=== PATIENT | female | born 1955 | race African-American/Black ===

== ENCOUNTER 2017-07-03 13:36 | Inpatient (IN) | payer MEDICAID, SELFPAY ==
[2017-07-03 14:21] LABS: #Lymphocytes 0.8 thou/uL (1.20-3.40); #Monocytes 1.2 thou/uL (0.11-0.59); #Neutrophils 12.4 thou/uL (1.40-6.50); %Basophils 0.2 % (0.0-1.0); %Eosinophils 0.1 % (0.0-10.0); %Lymphocytes 5.5 % (21.0-51.0); %Monocytes 8.2 % (0.0-10.0); Hematocrit 35.5 % (36.0-47.0); Mean Platelet Volume 8.8 fL (7.4-10.4); Red Blood Cell (RBC) Count 4.35 mill/uL (4.20-5.40); White Blood Cell (WBC) Count 14.4 thou/uL (4.8-10.8)
[2017-07-03 14:29] LABS: PTT 35.8 SEC (22.9-36.1); Prothrombin Time 15.2 SEC (12.0-14.7)
[2017-07-03 14:49] LABS: Troponin I 0.026 ng/mL (< 0.028)
[2017-07-03 14:51] LABS: ALT (SGPT) 21 U/L (8-55); AST (SGOT) 29 U/L (5-34); Alkaline Phosphatase 111 U/L (40-150); Anion Gap 15 mmol/L (10-20); BUN (Urea Nitrogen) 30 mg/dL (9.8-20.1); Bilirubin, Total 0.6 mg/dL (0.2-1.2); CK (CPK) 125 U/L (29-168); Calc. Creatinine Clearance 0 mL/min (70-130); Calcium 9.4 mg/dL (7.8-10.44); Carbon Dioxide 25 mmol/L (22-29); Chloride 107 mmol/L (98-107); Estimated GFR-MDRD 23; Globulin 4.2 g/dL (2.4-3.5); Protein, Total 7.9 g/dL (6.0-8.3)
[2017-07-03] MEDS ORDERED: Acetaminophen 325 MG TAB ONE (15:54)
--- NOTE | 2017-07-03 16:14 | RAD ---
PORTABLE AP CHEST X-RAY 07/03/17 HISTORY: High blood pressure and dizziness and nausea since Thursday. COMPARISON: 01/21/17. FINDINGS: The cardiac silhouette and pulmonary vasculature are within normal limits. Lungs are clear. There has been no interval change from the prior exam. IMPRESSION: No acute cardiopulmonary process. POS: [facility]
[2017-07-03 16:26] LABS: Bilirubin Negative (Negative); Blood, Urine Moderate (Negative); Glucose, Urine (Dipstick) Negative (Negative); Ketone, Urine Negative (Negative); Nitrite Negative (Negative); Protein, Urine (Dipstick) 100 mg/dL (Neg-Trace); Urobilinogen 0.2 mg/dL (0.2-1.0)
[2017-07-03 16:28] LABS: Bacteria/HPF None Seen HPF (None Seen); Hyaline Casts/LPF 0-3 HYALINE CAST LPF (0-3 Hyaline)
[2017-07-03] MEDS ORDERED: cefTRIAXone\\ROCEPHIN 2 GM in Sodium Chloride 0.9% 100 ML IVPB SCH (17:30)
[2017-07-03] MEDS ORDERED: Ondansetron HCl/PF 4 MG/2 ML Vial ONE (17:55)
[2017-07-03 18:50] LABS: Lactic Acid - Sepsis 0.8 mmol/L (0.5-2.2)
[2017-07-03] MEDS ORDERED: hydrALAZINE 20 MG/ML VIAL SLOW IVP PRN (18:55)
[2017-07-03 20:25] LABS: Lactic Acid - Sepsis 0.9 mmol/L (0.5-2.2)
[2017-07-03] MEDS ORDERED: Ondansetron HCl/PF 4 MG/2 ML Vial IVP PRN (20:45)
[2017-07-03] MEDS ORDERED: Ondansetron ODT 4 MG TAB SL PRN (20:45)
[2017-07-03] MEDS ORDERED: Acetaminophen 325 MG TAB PO PRN (20:45)
[2017-07-03] MEDS ORDERED: HYDROcodone/Acetaminophen 5/325 mg Tablet PO PRN (20:46)
[2017-07-03] MEDS ORDERED: HYDROcodone/Acetaminophen 10/325 mg Tablet PO PRN (20:46)
[2017-07-03] MEDS ORDERED: Enoxaparin Sodium 30 MG/0.3 ML SYRINGE SC SCH (20:46)
[2017-07-03] MEDS ORDERED: Cefepime 1 GM in Sodium Chloride 0.9% 100 ML IVPB SCH (21:00)
[2017-07-03] MEDS: Sodium Chloride 0.9% 1,000 ML IV SCH ×2 (22:08→22:09)
[2017-07-03] MEDS: Cefepime 1 GM, Admixture Fee 1 EACH in Sterile Water 10 ML SLOW IVP SCH (22:10)
[2017-07-03] MEDS: metroNIDAZOLE 500 MG in Premix Bag 1 BAG IVPB SCH (22:15)
[2017-07-03 22:55] VITALS: BMI 30.3
--- NOTE | 2017-07-03 23:32 | HP ---
PRIMARY CARE PHYSICIAN: Dr. Shelley CHIEF COMPLAINT: Blood pressure, dizziness, arm pain. HISTORY OF PRESENT ILLNESS: Ms. Rene is a 62-year-old female with history of hypert ension, GERD, renal cell carcinoma who presents to the emergency department today with several compla ints. Per the note, she was complaining of myalgias for the last 2 to 3 days, but she says she really not h ad any muscle aches, she has felt bad for 2 to 3 days. She mentions pain in the left arm, where her whole arm ached and went into the chest starting today. Chest pain is sharp in nature, in the upper left region of her chest. Worse with palpation, deep inspiration and coughing. She has had a cough productive of some whitish to spivey color sputum and no blood. It is only minimally productive. She says her blood pressure has gone up and down and when asked to elucidate, she said it had gone from 1 45/70 to 150/80 to 160/89. She has not had any blood pressures over 160 and she has not had any bloo d pressures less than 140. She says she has some dizziness and just did not feel right, felt nauseat ed, but did not have any throwing up. She has some nausea here in the ER, was given some Zofran and it resolved. She said her urine has been dark and strongly odor, but did not smell bad. She denies any dysuria or hematuria. She has been drinking 3 of 4 bottles of water a day, has been urinating okay. She denie s having any fever or rash, but said the last night, she has had some chills with shaking rigors. Sh e did not actually take her temperature. She says her heart rate is normally in the 50s, but in the last couple days, it has been in the 70s a nd 80s and she has felt bad with that. She denies any other current complaints and since given some medicine in the ER, feels a little better. In the emergency department she was given Rocephin, labs and urine were obtained. She was given Tyle nol, and we were called for admission. PAST MEDICAL HISTORY: 1. Hypertension. 2. Gastroesophageal reflux disease. 3. Renal cell carcinoma. 4. Heart murmur. PAST SURGICAL HISTORY: 1. Right nephrectomy. 2. Hysterectomy and bilateral salpingo-oophorectomy. 3. Right breast lumpectomy. HOME MEDICATIONS: 1. Amlodipine, recently increased about 2 weeks ago to 5 mg daily. 2. Protonix 40 mg p.o. q.a.m. 3. Iron tablets. 4. Vitamin D. ALLERGIES: NKDA. FAMILY HISTORY: Significant for coronary artery disease. Her mom at age 66 of heart attack. N o history of premature coronary disease, no diabetes. There is no history of immune dysfunction or h ematologic disorders. SOCIAL HISTORY: Negative for alcohol or IV drug use. She does use tobacco, snuff. She goes to [facility] t 1 can a week. REVIEW OF SYSTEMS: Ten-point review of system was performed and negative for all other systems excep t dictated as per HPI. PHYSICAL EXAMINATION: VITAL SIGNS: Temperature initially on arrival 101.2, now down to 98.4; pulse 89 and is maximum, now down the mid 70s. Blood pressure 110/72, respiratory rate 20, sat 98% on room air. GENERAL: She is awake, she is alert. She is oriented x3. Well-developed, well-nourished -Am erican female, appears to be in zero distress. HEENT: Normocephalic, atraumatic. Pupils equal, round, react to light bilaterally, mucous membranes are moist and no visible lesions and no thrush. She has some posterior nasal drainage that is clear with some posterior oropharyngeal cobblestoning. LUNGS: Clear to auscultation bilaterally. She has no wheezes, no rales, no rhonchi, no prolonged ex piratory phase. She has got symmetric chest excursion with good air movement. CARDIOVASCULAR: Normal S1 and S2. No S3 or S4. She does have a 3/6 holosystolic murmur, best heard at the apex. ABDOMEN: Soft, is nontender, nondistended. She has got no hepatosplenomegaly. She has normoactive bowel sounds present in all 4 quadrants. There is no rebound, rigidity or guarding. EXTREMITIES: There is no cyanosis, no clubbing, no edema with 2+ peripheral pulses. SKIN: Warm, moist and well perfused. She has no rashes, no lesions. MUSCULOSKELETAL: Normal to inspection. Large joints have good range of motion actively and passivel y. She has no inflammation and no palpable effusion. NEUROLOGIC: Cranial II-XII grossly intact without any focal neurologic deficits. LABORATORY STUDIES: CMP is completely within normal limits except for creatinine at 2.54, noted as 1 .29 back in 01/2017. White blood cell count 14.4 with 86% granulocytes, hemoglobin 11.9, hematocrit 35.5, and platelet count is 164,000. Urinalysis showed moderate blood, 11-20 red blood cells, 11-20 white blood cells, 4-6 grams of epithelium cells, no bacteria, negative nitrite and only trace leukoc yte esterase. Flu test is currently pending. CK-MB is normal at 0.4, troponin I is normal at 0.026 and INR was 1.2. Chest x-ray showed no acute cardiopulmonary disease. Lactic acid been requested and is pending. ASSESSMENT AND PLAN: 1. Severe sepsis. The patient has a fever, elevated white count, suspected infection, and evidence of end organ disease with creatinine double what her baseline value is. Sepsis protocol has been ini tiated. She got 30 mL/kg IV fluids, blood cultures have been ordered. I requested lactic acid to be drawn stat in the ER. Flu study still currently pending. We will place patient on inpatient status . We will start cefepime and levofloxacin empirically. She has had upper respiratory symptoms and n ot quite abnormal urine. She has no abdominal complaints whatsoever. 2. History of acute kidney injury: Creatinine 2.54, was 1.29 back in January. We will start on IV flu ids at 125 mL per hour. We will recheck in the morning. Also, it could be dehydration, the patient says she has been drinking fluids okay and worried that she may be an acute kidney injury secondary t o her sepsis. 3. History of hypertension: We will hold her amlodipine for right now. We will have p.r.n. hydrala zine if her blood pressure does get elevated. 4. History of gastroesophageal reflux disease: We will continue Protonix for GI prophylaxis. 5. History of renal cancer, status post nephrectomy. 6. History of a murmur: Does have mitral regurge murmur present. No history of heart failure. We will hold off on getting an echocardiogram at present. Certainly, concerned for heart valve infectio n and we would go up if there is no other identifiable source. We will follow up on blood cultures.
[2017-07-04] MEDS: Sodium Chloride 0.9% 1,000 ML IV SCH ×3 (01:43→12:09)
[2017-07-04] MEDS: Acetaminophen 325 MG TAB PO PRN ×2 (02:02→11:05)
[2017-07-04] MEDS: metroNIDAZOLE 500 MG in Premix Bag 1 BAG IVPB SCH ×3 (04:37→20:43)
[2017-07-04 05:47] LABS: #Lymphocytes 0.7 thou/uL (1.20-3.40); #Neutrophils 8.1 thou/uL (1.40-6.50); %Basophils 0.1 % (0.0-1.0); %Eosinophils 0.3 % (0.0-10.0); %Lymphocytes 6.8 % (21.0-51.0); %Monocytes 10.4 % (0.0-10.0); Hematocrit 28.6 % (36.0-47.0); Mean Platelet Volume 9.1 fL (7.4-10.4); White Blood Cell (WBC) Count 9.9 thou/uL (4.8-10.8)
[2017-07-04 05:59] LABS: Anion Gap 11 mmol/L (10-20); BUN (Urea Nitrogen) 30 mg/dL (9.8-20.1); Calc. Creatinine Clearance 31 mL/min (70-130); Calcium 8.1 mg/dL (7.8-10.44); Carbon Dioxide 22 mmol/L (22-29); Chloride 111 mmol/L (98-107); Estimated GFR-MDRD 24
[2017-07-04] MEDS: Cefepime 1 GM, Admixture Fee 1 EACH in Sterile Water 10 ML SLOW IVP SCH ×2 (09:03→20:43)
--- NOTE | 2017-07-04 12:05 | PDOC.PN ---
- Subjective Encounter Start Date: 07/04/17 Encounter Start Time: 10:20 states she is feeling better but feels like she is currently having fever right now. Temp was 100 after reporting symptoms of fever. Patient was febrile at midnight - Objective Resuscitation Status: Resuscitation Status FULL:Full Resuscitation Vital Signs & Weight: Vital Signs (12 hours) Temp Pulse Resp BP Pulse Ox 07/04/17 11:03 100 F H 07/04/17 08:00 97.6 F 62 18 93 L 07/04/17 07:54 97.6 F 62 18 117/63 93 L 07/04/17 04:00 99.1 F 62 18 121/58 L 100 Weight Weight 176 lb 11.2 oz I&O: 07/03/17 07/04/17 07/05/17 06:59 06:59 06:59 Intake Total 1164 Output Total 900 Balance 264 Result Diagrams: 07/04/17 05:16 07/04/17 05:16 Phys Exam - Physical Examination HEENT: PERRLA, moist MMs Neck: no nodes, no JVD Respiratory: no wheezing, no rales, clear to auscultation bilateral Cardiovascular: RRR, no significant murmur, no rub Gastrointestinal: soft, non-tender Musculoskeletal: no edema, pulses present Neurological: non-focal, moves all 4 limbs Psychiatric: normal affect, A&O x 3 Skin: cap refill <2 seconds Dx/Plan (1) Severe sepsis Code(s): A41.9 - SEPSIS, UNSPECIFIED ORGANISM; R65.20 - SEVERE SEPSIS WITHOUT SEPTIC SHOCK Status: Acute (2) CKD (chronic kidney disease), stage III Status: Chronic (3) HTN (hypertension) Code(s): I10 - ESSENTIAL (PRIMARY) HYPERTENSION Status: Chronic - Plan cont current plan of care, plan discussed w/ family, continue antibiotics * . unclear the source of her fever blood cultures ordered. pending results continue with IV abx.
[2017-07-04] MEDS: Ondansetron ODT 4 MG TAB PO PRN ×2 (12:27→17:54)
[2017-07-05] MEDS: Sodium Chloride 0.9% 1,000 ML IV SCH ×3 (02:19→20:43)
[2017-07-05] MEDS: metroNIDAZOLE 500 MG in Premix Bag 1 BAG IVPB SCH ×3 (05:22→20:26)
[2017-07-05 06:28] LABS: Anion Gap 13 mmol/L (10-20); BUN (Urea Nitrogen) 27 mg/dL (9.8-20.1); Calc. Creatinine Clearance 32 mL/min (70-130); Carbon Dioxide 22 mmol/L (22-29); Chloride 118 mmol/L (98-107); Estimated GFR-MDRD 25
[2017-07-05] MEDS: Acetaminophen 325 MG TAB PO PRN ×2 (08:39→18:31)
[2017-07-05] MEDS: Ondansetron ODT 4 MG TAB PO PRN (08:40)
[2017-07-05] MEDS: Cefepime 1 GM, Admixture Fee 1 EACH in Sterile Water 10 ML SLOW IVP SCH ×2 (09:51→20:25)
--- NOTE | 2017-07-05 11:32 | PDOC.PN ---
- Subjective Encounter Start Date: 07/05/17 Encounter Start Time: 08:00 Pt seen for followup re; sepsis. Denies chets pain. Feels weak. Nausea+. No vomiting or diarrhea. - Objective Resuscitation Status: Resuscitation Status FULL:Full Resuscitation Vital Signs & Weight: Vital Signs (12 hours) Temp Pulse Resp BP Pulse Ox 07/05/17 07:45 99.3 F 75 20 135/63 100 07/05/17 04:00 98.8 F 74 18 153/67 H 94 L 07/05/17 00:00 99.2 F 74 16 126/65 92 L Weight Weight 176 lb 11.2 oz I&O: 07/04/17 07/05/17 07/06/17 06:59 06:59 06:59 Intake Total 1164 6083 Output Total 900 3000 Balance 264 3083 Result Diagrams: 07/04/17 05:16 07/05/17 05:35 Phys Exam - Physical Examination Constitutional: NAD HEENT: PERRLA, moist MMs, sclera anicteric, oral pharynx no lesions Neck: no nodes, no JVD, supple, full ROM Respiratory: no wheezing, no rales, no rhonchi, clear to auscultation bilateral Cardiovascular: RRR, no rub Apical systolic murmur Gastrointestinal: soft, non-tender, no distention, positive bowel sounds Musculoskeletal: pulses present Neurological: moves all 4 limbs Lymphatic: no nodes Psychiatric: normal affect, A&O x 3 Skin: no rash, normal turgor, cap refill <2 seconds Dx/Plan (1) Sepsis Code(s): A41.9 - SEPSIS, UNSPECIFIED ORGANISM Status: Acute (2) Acute on chronic renal failure Code(s): N17.9 - ACUTE KIDNEY FAILURE, UNSPECIFIED; N18.9 - CHRONIC KIDNEY DISEASE, UNSPECIFIED Status: Acute (3) GERD (gastroesophageal reflux disease) Code(s): K21.9 - GASTRO-ESOPHAGEAL REFLUX DISEASE WITHOUT ESOPHAGITIS Status: Chronic (4) HTN (hypertension) Code(s): I10 - ESSENTIAL (PRIMARY) HYPERTENSION Status: Chronic - Plan continue antibiotics, PT/OT, out of bed/ambulate, DVT proph w/heparin * . Continue IV antibiotics. 2D echo to r/o infective endocarditis. Monitor hellen;l signs, titrate antihypertensives as needed. Resume home medications. Avoid nephrotoxic meds, monitor creatinine and lytes. Review of Systems - Review of Systems Constitutional: Weakness. negative: Fever, Chills, Sweats, Malaise Respiratory: negative: Cough, Dry, Shortness of Breath, Hemoptysis, SOB with Excertion, Pleuritic Pain, Sputum, Wheezing Cardiovascular: negative: Chest Pain, Palpitations, Orthopnea, Paroxysmal Noc. Dyspnea, Edema, Light Headedness Gastrointestinal: Nausea. negative: Vomiting, Abdominal Pain, Diarrhea, Constipation, Melena, Hematochezia Genitourinary: negative: Dysuria, Frequency, Incontinence, Hematuria, Retention Neurological: Weakness - Medications/Allergies Allergies/Adverse Reactions: Allergies Allergy/AdvReac Type Severity Reaction Status Date / Time No Known Allergies Allergy Verified 01/31/16 19:53 Medications: Current Medications Acetaminophen (Tylenol) 650 mg PO Q4H PRN PRN Reason: Headache/Fever or Pain Last Admin: 07/05/17 08:39 Dose: 650 mg Hydrocodone Bitart/Acetaminophen ([place] 10/325) 1 tab PO Q4H PRN PRN Reason: Severe Pain (7-10) Last Admin: 07/03/17 22:09 Dose: 1 tab Hydrocodone Bitart/Acetaminophen ([place] 5/325) 1 tab PO Q4H PRN PRN Reason: Moderate Pain (4-6) Hydralazine HCl (Apresoline) 10 mg SLOW IVP Q4H PRN PRN Reason: SBP Greater Than 170 Metronidazole 500 mg/ Device 100 mls @ 100 mls/hr IVPB Q8HR [facility] Last Admin: 07/05/17 05:22 Dose: 100 mls Sodium Chloride (Normal Saline 0.9%) 1,000 mls @ 125 mls/hr IV .Q8H [facility] Last Admin: 07/05/17 02:19 Dose: 1,000 mls Cefepime HCl 1 gm/Miscellaneous Medication 1 each/ Sterile Water 10 mls @ 120 mls/hr SLOW IVP Q12HR [facility] Last Admin: 07/05/17 09:51 Dose: 10 mls Ondansetron HCl (Zofran Odt) 4 mg PO Q6H PRN PRN Reason: Nausea/Vomiting Last Admin: 07/05/17 08:40 Dose: 4 mg Pantoprazole Sodium (Protonix) 40 mg PO DAILY [facility] Last Admin: 07/05/17 08:39 Dose: 40 mg
[2017-07-05] MEDS: Heparin 5,000 UNITS/ML VIAL SC SCH ×2 (15:57→20:26)
[2017-07-06] MEDS: Acetaminophen 325 MG TAB PO PRN (04:06)
[2017-07-06] MEDS: Ondansetron ODT 4 MG TAB PO PRN (04:07)
[2017-07-06] MEDS: metroNIDAZOLE 500 MG in Premix Bag 1 BAG IVPB SCH ×3 (05:10→22:09)
[2017-07-06] MEDS: Sodium Chloride 0.9% 1,000 ML IV SCH ×3 (05:10→22:09)
[2017-07-06] MEDS ORDERED: Clopidogrel Bisulfate 75 MG TAB ONE (08:32)
[2017-07-06] MEDS ORDERED: Non-Formulary Item 1 EACH (Iron [Iron] 18 MG) PO SCH (09:00)
[2017-07-06] MEDS ORDERED: Non-Formulary Item 1 EACH (Amlodipine Besylate [Amlodipine Besylate] 2.5 MG) PO SCH (09:00)
[2017-07-06] MEDS: Amlodipine 5 MG TAB PO SCH (09:15)
[2017-07-06] MEDS: Heparin 5,000 UNITS/ML VIAL SC SCH ×3 (09:15→20:29)
[2017-07-06] MEDS: Ferrous Sulfate 325 MG TAB PO SCH (09:15)
[2017-07-06] MEDS: Cefepime 1 GM, Admixture Fee 1 EACH in Sterile Water 10 ML SLOW IVP SCH ×2 (09:24→20:28)
--- NOTE | 2017-07-06 10:19 | PDOC.PN ---
- Subjective Encounter Start Date: 07/06/17 Encounter Start Time: 07:00 Pt seen for followup re: sepsis. Denies chest pain, fevers or chills. Reports generalized weakness. Reports malodorous urine. Reports dry mouth, discomfort in mouth. - Objective Resuscitation Status: Resuscitation Status FULL:Full Resuscitation MAR Reviewed: Yes Vital Signs & Weight: Vital Signs (12 hours) Temp Pulse Resp BP Pulse Ox 07/06/17 09:15 68 07/06/17 07:52 98.8 F 68 18 181/76 H 93 L 07/06/17 04:00 100.0 F H 79 20 158/64 H 91 L Weight Weight 176 lb 11.2 oz I&O: 07/05/17 07/06/17 07/07/17 06:59 06:59 06:59 Intake Total 6083 4670 Output Total 3000 3400 Balance 3083 1270 Result Diagrams: 07/04/17 05:16 07/05/17 05:35 EKG Reviewed by me: Yes (Tele: NSR) Phys Exam - Physical Examination Constitutional: NAD HEENT: PERRLA, moist MMs, sclera anicteric, oral pharynx no lesions, 2+ tonsils Neck: no nodes, no JVD, supple, full ROM Respiratory: no wheezing, no rales, no rhonchi, clear to auscultation bilateral Cardiovascular: RRR, no rub Gastrointestinal: soft, non-tender, no distention, positive bowel sounds Musculoskeletal: pulses present Neurological: moves all 4 limbs Lymphatic: no nodes Psychiatric: normal affect, A&O x 3 Skin: no rash, normal turgor, cap refill <2 seconds Dx/Plan (1) Sepsis Code(s): A41.9 - SEPSIS, UNSPECIFIED ORGANISM Status: Acute (2) Acute on chronic renal failure Code(s): N17.9 - ACUTE KIDNEY FAILURE, UNSPECIFIED; N18.9 - CHRONIC KIDNEY DISEASE, UNSPECIFIED Status: Acute (3) GERD (gastroesophageal reflux disease) Code(s): K21.9 - GASTRO-ESOPHAGEAL REFLUX DISEASE WITHOUT ESOPHAGITIS Status: Chronic (4) HTN (hypertension) Code(s): I10 - ESSENTIAL (PRIMARY) HYPERTENSION Status: Chronic - Plan continue antibiotics, PT/OT, out of bed/ambulate, DVT proph w/heparin * . Continue IV antibiotics as below, follow cultures. Start Cepastat lozenges. Check Chem-7. Ambulate patient. 2D echo report noted. Transfer pt to medical floor. Review of Systems - Review of Systems Constitutional: Weakness. negative: Fever, Chills, Sweats, Malaise, Other ENT: Mouth Pain Respiratory: negative: Cough, Dry, Shortness of Breath, Hemoptysis, SOB with Excertion, Pleuritic Pain, Sputum, Wheezing Cardiovascular: negative: Chest Pain, Palpitations, Orthopnea, Paroxysmal Noc. Dyspnea, Edema, Light Headedness Gastrointestinal: negative: Nausea, Vomiting, Abdominal Pain, Diarrhea, Constipation, Melena, Hematochezia Neurological: Weakness. negative: Numbness, Incoordination, Change in Speech, Confusion, Seizures - Medications/Allergies Allergies/Adverse Reactions: Allergies Allergy/AdvReac Type Severity Reaction Status Date / Time No Known Allergies Allergy Verified 01/31/16 19:53 Medications: Current Medications Acetaminophen (Tylenol) 650 mg PO Q4H PRN PRN Reason: Headache/Fever or Pain Last Admin: 07/06/17 04:06 Dose: 650 mg Hydrocodone Bitart/Acetaminophen ([place] 10/325) 1 tab PO Q4H PRN PRN Reason: Severe Pain (7-10) Last Admin: 07/03/17 22:09 Dose: 1 tab Hydrocodone Bitart/Acetaminophen ([place] 5/325) 1 tab PO Q4H PRN PRN Reason: Moderate Pain (4-6) Amlodipine Besylate (Norvasc) 2.5 mg PO DAILY [facility] Last Admin: 07/06/17 09:15 Dose: 2.5 mg Ferrous Sulfate (Feosol) 325 mg PO DAILY [facility] Last Admin: 07/06/17 09:15 Dose: 325 mg Heparin Sodium (Porcine) (Heparin) 5,000 units SC TID [facility] Last Admin: 07/06/17 09:15 Dose: 5,000 units Hydralazine HCl (Apresoline) 10 mg SLOW IVP Q4H PRN PRN Reason: SBP Greater Than 170 Metronidazole 500 mg/ Device 100 mls @ 100 mls/hr IVPB Q8HR [facility] Last Admin: 07/06/17 05:10 Dose: 100 mls Sodium Chloride (Normal Saline 0.9%) 1,000 mls @ 125 mls/hr IV .Q8H [facility] Last Admin: 07/06/17 05:10 Dose: 1,000 mls Cefepime HCl 1 gm/Miscellaneous Medication 1 each/ Sterile Water 10 mls @ 120 mls/hr SLOW IVP Q12HR [facility] Last Admin: 07/06/17 09:24 Dose: 10 mls Ondansetron HCl (Zofran Odt) 4 mg PO Q6H PRN PRN Reason: Nausea/Vomiting Last Admin: 07/06/17 04:07 Dose: 4 mg Pantoprazole Sodium (Protonix) 40 mg PO DAILY [facility] Last Admin: 07/06/17 09:16 Dose: 40 mg Pantoprazole Sodium (Protonix) 40 mg PO DAILY [facility] Last Admin: 07/06/17 09:16 Dose: Not Given Sodium Chloride (Flush - Normal Saline) 10 ml IVF Q12HR [facility] Last Admin: 07/06/17 09:17 Dose: Not Given Sodium Chloride (Flush - Normal Saline) 10 ml IVF PRN PRN PRN Reason: Saline Flush
[2017-07-06] MEDS ORDERED: Cepastat Lozenges 1 LOZ PO PRN (10:24)
[2017-07-06 10:59] LABS: Anion Gap 14 mmol/L (10-20); BUN (Urea Nitrogen) 19 mg/dL (9.8-20.1); Calc. Creatinine Clearance 38 mL/min (70-130); Calcium 9.2 mg/dL (7.8-10.44); Carbon Dioxide 20 mmol/L (22-29); Chloride 120 mmol/L (98-107); Estimated GFR-MDRD 31
[2017-07-06 11:23] LABS: #Lymphocytes 1.1 thou/uL (1.20-3.40); #Monocytes 0.9 thou/uL (0.11-0.59); #Neutrophils 10.2 thou/uL (1.40-6.50); %Basophils 0.1 % (0.0-1.0); %Eosinophils 0.3 % (0.0-10.0); %Lymphocytes 9.1 % (21.0-51.0); %Monocytes 7.2 % (0.0-10.0); Hematocrit 33.9 % (36.0-47.0); Mean Platelet Volume 9.3 fL (7.4-10.4); Polychromasia SLIGHT = 2-3 cells (100X) (0-2/hpf); Red Blood Cell (RBC) Count 4.13 mill/uL (4.20-5.40); White Blood Cell (WBC) Count 12.2 thou/uL (4.8-10.8)
[2017-07-07] MEDS: Sodium Chloride 0.9% 1,000 ML IV SCH (02:03)
[2017-07-07] MEDS: metroNIDAZOLE 500 MG in Premix Bag 1 BAG IVPB SCH (05:07)
[2017-07-07 05:45] LABS: #Monocytes 0.7 thou/uL (0.11-0.59); #Neutrophils 7.7 thou/uL (1.40-6.50); %Basophils 0.3 % (0.0-1.0); %Eosinophils 0.3 % (0.0-10.0); %Lymphocytes 10.5 % (21.0-51.0); %Monocytes 7.7 % (0.0-10.0); Hematocrit 28.1 % (36.0-47.0); Mean Platelet Volume 9.4 fL (7.4-10.4); Red Blood Cell (RBC) Count 3.39 mill/uL (4.20-5.40); White Blood Cell (WBC) Count 9.5 thou/uL (4.8-10.8)
[2017-07-07 05:57] LABS: Anion Gap 13 mmol/L (10-20); BUN (Urea Nitrogen) 18 mg/dL (9.8-20.1); Calc. Creatinine Clearance 45 mL/min (70-130); Calcium 8.5 mg/dL (7.8-10.44); Carbon Dioxide 20 mmol/L (22-29); Chloride 123 mmol/L (98-107); Estimated GFR-MDRD 37
[2017-07-07] MEDS: Ferrous Sulfate 325 MG TAB PO SCH (09:13)
[2017-07-07] MEDS: Amlodipine 5 MG TAB PO SCH (09:14)
[2017-07-07] MEDS: Heparin 5,000 UNITS/ML VIAL SC SCH ×3 (09:16→20:19)
[2017-07-07] MEDS: Cefepime 1 GM, Admixture Fee 1 EACH in Sterile Water 10 ML SLOW IVP SCH ×2 (10:07→20:19)
--- NOTE | 2017-07-07 11:05 | PDOC.PN ---
- Subjective Encounter Start Date: 07/07/17 Encounter Start Time: 09:50 -: old records requested/rev Patient seen and examined. she feels overall weak. No overnight events - Objective Resuscitation Status: Resuscitation Status FULL:Full Resuscitation MAR Reviewed: Yes Vital Signs & Weight: Vital Signs (12 hours) Temp Pulse Resp BP BP Pulse Ox 07/07/17 10:27 98.4 F 67 18 07/07/17 09:14 67 07/07/17 08:00 67 18 132/52 L 93 L 07/07/17 07:10 98.4 F 67 16 132/52 L 93 L 07/07/17 04:00 98.2 F 69 20 153/80 H 93 L 07/07/17 00:00 98.3 F 77 20 138/78 94 L Weight Weight 176 lb 11.2 oz I&O: 07/06/17 07/07/17 07/08/17 06:59 06:59 06:59 Intake Total 4670 2345 Output Total 3400 Balance 1270 2345 Result Diagrams: 07/07/17 04:48 07/07/17 04:48 Phys Exam - Physical Examination Constitutional: NAD HEENT: PERRLA, moist MMs, sclera anicteric Neck: no JVD, supple Respiratory: no wheezing, no rales, no rhonchi Cardiovascular: RRR, no significant murmur, no rub Gastrointestinal: soft, non-tender, no distention, positive bowel sounds Musculoskeletal: no edema, pulses present Neurological: non-focal, normal sensation Lymphatic: no nodes Psychiatric: normal affect, A&O x 3 Skin: no rash, normal turgor Dx/Plan (1) Acute worsening of stage 3 chronic kidney disease Code(s): N18.3 - CHRONIC KIDNEY DISEASE, STAGE 3 (MODERATE) Status: Acute (2) Hypernatremia Code(s): E87.0 - HYPEROSMOLALITY AND HYPERNATREMIA Status: Acute (3) Hypokalemia Code(s): E87.6 - HYPOKALEMIA Status: Acute (4) Sepsis with acute organ dysfunction Code(s): A41.9 - SEPSIS, UNSPECIFIED ORGANISM; R65.20 - SEVERE SEPSIS WITHOUT SEPTIC SHOCK Status: Acute (5) UTI (urinary tract infection) Status: Acute (6) Anemia, normocytic normochromic Code(s): D64.9 - ANEMIA, UNSPECIFIED Status: Chronic (7) CKD (chronic kidney disease), stage III Status: Chronic (8) GERD (gastroesophageal reflux disease) Code(s): K21.9 - GASTRO-ESOPHAGEAL REFLUX DISEASE WITHOUT ESOPHAGITIS Status: Chronic (9) HTN (hypertension) Code(s): I10 - ESSENTIAL (PRIMARY) HYPERTENSION Status: Chronic (10) Obesity (BMI 30.0-34.9) Code(s): E66.9 - OBESITY, UNSPECIFIED Status: Chronic - Plan cont current plan of care, continue antibiotics * creatinine is improving * sodium is getting worse, so will change IVF to dex with water and repeat labs tomorrow * continue selected home meds * medication reviewed as below * symptomatic treatment * continue IV antibiotics as ordered * so far culture negative. * give Kphos * ambulate as tolerated Review of Systems - Review of Systems ENT: negative: Ear Pain, Ear Discharge, Nose Pain, Nose Discharge, Nose Congestion, Mouth Pain, Mouth Swelling, Throat Pain, Throat Swelling, Other Respiratory: negative: Cough, Dry, Shortness of Breath, Hemoptysis, SOB with Excertion, Pleuritic Pain, Sputum, Wheezing Cardiovascular: negative: Chest Pain, Palpitations, Orthopnea, Paroxysmal Noc. Dyspnea, Edema, Light Headedness, Other Gastrointestinal: negative: Nausea, Vomiting, Abdominal Pain, Diarrhea, Constipation, Melena, Hematochezia, Other Genitourinary: negative: Dysuria, Frequency, Incontinence, Hematuria, Retention , Other Musculoskeletal: negative: Neck Pain, Shoulder Pain, Arm Pain, Back Pain, Hand Pain, Leg Pain, Foot Pain, Other Skin: negative: Rash, Lesions, Miguel, Bruising, Other - Medications/Allergies Allergies/Adverse Reactions: Allergies Allergy/AdvReac Type Severity Reaction Status Date / Time No Known Allergies Allergy Verified 01/31/16 19:53 Medications: Current Medications Acetaminophen (Tylenol) 650 mg PO Q4H PRN PRN Reason: Headache/Fever or Pain Last Admin: 07/06/17 04:06 Dose: 650 mg Hydrocodone Bitart/Acetaminophen ([place] 10/325) 1 tab PO Q4H PRN PRN Reason: Severe Pain (7-10) Last Admin: 07/03/17 22:09 Dose: 1 tab Hydrocodone Bitart/Acetaminophen ([place] 5/325) 1 tab PO Q4H PRN PRN Reason: Moderate Pain (4-6) Amlodipine Besylate (Norvasc) 2.5 mg PO DAILY [facility] Last Admin: 07/07/17 09:14 Dose: 2.5 mg Ferrous Sulfate (Feosol) 325 mg PO DAILY [facility] Last Admin: 07/07/17 09:13 Dose: 325 mg Heparin Sodium (Porcine) (Heparin) 5,000 units SC TID [facility] Last Admin: 07/07/17 09:16 Dose: 5,000 units Hydralazine HCl (Apresoline) 10 mg SLOW IVP Q4H PRN PRN Reason: SBP Greater Than 170 Cefepime HCl 1 gm/Miscellaneous Medication 1 each/ Sterile Water 10 mls @ 120 mls/hr SLOW IVP Q12HR [facility] Last Admin: 07/07/17 10:07 Dose: 10 mls Dextrose/Water (D5w) 1,000 mls @ 75 mls/hr IV .[id number] [facility] Ondansetron HCl (Zofran Odt) 4 mg PO Q6H PRN PRN Reason: Nausea/Vomiting Last Admin: 07/06/17 04:07 Dose: 4 mg Pantoprazole Sodium (Protonix) 40 mg PO DAILY [facility] Last Admin: 07/07/17 09:13 Dose: 40 mg Sodium Chloride (Flush - Normal Saline) 10 ml IVF Q12HR [facility] Last Admin: 07/07/17 10:09 Dose: 10 ml Sodium Chloride (Flush - Normal Saline) 10 ml IVF PRN PRN PRN Reason: Saline Flush Throat Lozenges (Cepastat Lozenges) 1 juve PO Q2H PRN PRN Reason: Sore Throat Last Admin: 07/06/17 12:01 Dose: 1 juve
[2017-07-07] MEDS ORDERED: K-Phos Neutral 250 MG TAB PO SCH (12:00)
[2017-07-07] MEDS: Dextrose 5% in Water 1,000 ML IV SCH ×2 (12:02→20:19)
[2017-07-07] MEDS: Ondansetron ODT 4 MG TAB PO PRN (12:03)
[2017-07-07] MEDS: Acetaminophen 325 MG TAB PO PRN (20:20)
[2017-07-08] MEDS: Dextrose 5% in Water 1,000 ML IV SCH (00:04)
[2017-07-08] MEDS: Ondansetron ODT 4 MG TAB PO PRN (00:12)
[2017-07-08 04:51] LABS: Anion Gap 10 mmol/L (10-20); BUN (Urea Nitrogen) 16 mg/dL (9.8-20.1); Calc. Creatinine Clearance 49 mL/min (70-130); Carbon Dioxide 27 mmol/L (22-29); Chloride 113 mmol/L (98-107); Estimated GFR-MDRD 42
[2017-07-08 04:52] LABS: Calcium 8.4 mg/dL (7.8-10.44); Magnesium 1.3 mg/dL (1.6-2.6); Phosphorus 3.1 mg/dL (2.3-4.7)
[2017-07-08 05:23] LABS: #Eosinphils 0.1 thou/uL (0.0-0.7); #Lymphocytes 1.6 thou/uL (1.20-3.40); #Monocytes 0.8 thou/uL (0.11-0.59); #Neutrophils 7.1 thou/uL (1.40-6.50); %Basophils 0.3 % (0.0-1.0); %Eosinophils 1.1 % (0.0-10.0); %Lymphocytes 16.2 % (21.0-51.0); %Monocytes 8.7 % (0.0-10.0); Hematocrit 28.7 % (36.0-47.0); Mean Platelet Volume 9.7 fL (7.4-10.4); Red Blood Cell (RBC) Count 3.51 mill/uL (4.20-5.40); White Blood Cell (WBC) Count 9.7 thou/uL (4.8-10.8)
[2017-07-08] MEDS: Amlodipine 5 MG TAB PO SCH (08:19)
[2017-07-08] MEDS: Heparin 5,000 UNITS/ML VIAL SC SCH ×3 (08:20→20:33)
[2017-07-08] MEDS: Ferrous Sulfate 325 MG TAB PO SCH (08:20)
[2017-07-08] MEDS: Cefepime 1 GM, Admixture Fee 1 EACH in Sterile Water 10 ML SLOW IVP SCH (10:11)
[2017-07-08] MEDS ORDERED: Bisacodyl 10 MG SUPP PR SCH (11:30)
--- NOTE | 2017-07-08 13:40 | PDOC.PN ---
- Subjective Encounter Start Date: 07/08/17 Encounter Start Time: 10:30 Subjective: feels weak, has knee pain to ambulate - Objective Resuscitation Status: Resuscitation Status FULL:Full Resuscitation MAR Reviewed: Yes Vital Signs & Weight: Vital Signs (12 hours) Temp Pulse Resp BP Pulse Ox 07/08/17 08:19 66 07/08/17 08:00 98.9 F 66 20 144/77 H 94 L Weight Weight 176 lb 11.2 oz I&O: 07/07/17 07/08/17 07/09/17 06:59 06:59 06:59 Intake Total 2345 1761 Output Total 2200 Balance 2345 -439 Result Diagrams: 07/08/17 03:39 07/08/17 03:39 Phys Exam - Physical Examination HEENT: PERRLA, moist MMs Neck: no JVD, supple Respiratory: no wheezing, no rales Cardiovascular: RRR, no significant murmur Gastrointestinal: soft, non-tender, positive bowel sounds Musculoskeletal: no edema, pulses present Neurological: non-focal, moves all 4 limbs Psychiatric: A&O x 3 Dx/Plan (1) Acute worsening of stage 3 chronic kidney disease Code(s): N18.3 - CHRONIC KIDNEY DISEASE, STAGE 3 (MODERATE) Status: Acute (2) Hypernatremia Code(s): E87.0 - HYPEROSMOLALITY AND HYPERNATREMIA Status: Acute (3) Hypokalemia Code(s): E87.6 - HYPOKALEMIA Status: Acute (4) Sepsis with acute organ dysfunction Code(s): A41.9 - SEPSIS, UNSPECIFIED ORGANISM; R65.20 - SEVERE SEPSIS WITHOUT SEPTIC SHOCK Status: Acute (5) UTI (urinary tract infection) Status: Acute Qualifiers: Urinary tract infection type: acute cystitis Hematuria presence: without hematuria Qualified Code(s): N30.00 - Acute cystitis without hematuria (6) Anemia, normocytic normochromic Code(s): D64.9 - ANEMIA, UNSPECIFIED Status: Chronic (7) CKD (chronic kidney disease), stage III Status: Chronic (8) GERD (gastroesophageal reflux disease) Code(s): K21.9 - GASTRO-ESOPHAGEAL REFLUX DISEASE WITHOUT ESOPHAGITIS Status: Chronic Qualifiers: Esophagitis presence: esophagitis presence not specified Qualified Code(s) : K21.9 - Gastro-esophageal reflux disease without esophagitis (9) HTN (hypertension) Code(s): I10 - ESSENTIAL (PRIMARY) HYPERTENSION Status: Chronic Qualifiers: Hypertension type: essential hypertension Qualified Code(s): I10 - Essential (primary) hypertension (10) Obesity (BMI 30.0-34.9) Code(s): E66.9 - OBESITY, UNSPECIFIED Status: Chronic - Plan knee xrays due to pain -: continue d5w to correct hypernatremia along with electrolytes -: rehab eval -: cultures are -ve so far -: oral levaquin, PT to mobilize as tolerated * . Review of Systems - Medications/Allergies Allergies/Adverse Reactions: Allergies Allergy/AdvReac Type Severity Reaction Status Date / Time No Known Allergies Allergy Verified 01/31/16 19:53 Medications: Current Medications Acetaminophen (Tylenol) 650 mg PO Q4H PRN PRN Reason: Headache/Fever or Pain Last Admin: 07/07/17 20:20 Dose: 650 mg Hydrocodone Bitart/Acetaminophen ([place] 10/325) 1 tab PO Q4H PRN PRN Reason: Severe Pain (7-10) Last Admin: 07/03/17 22:09 Dose: 1 tab Hydrocodone Bitart/Acetaminophen ([place] 5/325) 1 tab PO Q4H PRN PRN Reason: Moderate Pain (4-6) Amlodipine Besylate (Norvasc) 2.5 mg PO DAILY [facility] Last Admin: 07/08/17 08:19 Dose: 2.5 mg Bisacodyl (Dulcolax) 10 mg CA 1130 [facility] Stop: 07/08/17 14:00 Last Admin: 07/08/17 12:28 Dose: 10 mg Docusate Sodium (Colace) 100 mg PO BID [facility] Ferrous Sulfate (Feosol) 325 mg PO DAILY [facility] Last Admin: 07/08/17 08:20 Dose: 325 mg Heparin Sodium (Porcine) (Heparin) 5,000 units SC TID [facility] Last Admin: 07/08/17 08:20 Dose: 5,000 units Hydralazine HCl (Apresoline) 10 mg SLOW IVP Q4H PRN PRN Reason: SBP Greater Than 170 Dextrose/Water (D5w) 1,000 mls @ 75 mls/hr IV .[id number] [facility] Last Admin: 07/08/17 00:04 Dose: 1,000 mls Levofloxacin (Levaquin) 500 mg PO 0600 [facility] Ondansetron HCl (Zofran Odt) 4 mg PO Q6H PRN PRN Reason: Nausea/Vomiting Last Admin: 07/08/17 00:12 Dose: 4 mg Pantoprazole Sodium (Protonix) 40 mg PO DAILY [facility] Last Admin: 07/08/17 08:20 Dose: 40 mg Sodium Chloride (Flush - Normal Saline) 10 ml IVF Q12HR [facility] Last Admin: 07/08/17 10:13 Dose: 10 ml Sodium Chloride (Flush - Normal Saline) 10 ml IVF PRN PRN PRN Reason: Saline Flush Throat Lozenges (Cepastat Lozenges) 1 juve PO Q2H PRN PRN Reason: Sore Throat Last Admin: 07/06/17 12:01 Dose: 1 juve
--- NOTE | 2017-07-08 15:58 | RAD ---
EXAM: LEFT KNEE FOUR VIEWS 07/08/17 COMPARISON: 09/07/16 FINDINGS: Trace suprapatellar effusion. Joint spaces are preserved. No fracture. No malalignment. IMPRESSION: Trace suprapatellar effusion. POS: [facility]
--- NOTE | 2017-07-08 16:05 | RAD ---
RADIOGRAPH RIGHT KNEE 4 VIEWS: 07/08/17 HISTORY: 62-year-old female with right knee pain. "Rule out fracture, rule out osteoarthritis." FINDINGS: Joint spaces are maintained without erosions. There is a shallow, subtle focal subchondral osseous de fect of the posterior articular surface of the patella. There is a suprapatellar joint effusion. Ther e is an enthesophyte at the anterior superior pole of the patella. Medial and lateral compartment zakia nt spaces are maintained without erosions or osteophytes. No fracture or dislocation. No destructive osseous lesion. IMPRESSION: 1. Small osteochondral lesion at the articular surface of the patella. 2. Joint effusion. 3. No evidence of fracture or osteoarthrosis. POS: [facility]
[2017-07-08] MEDS: Docusate 100 MG CAP PO SCH (20:33)
[2017-07-08] MEDS: Acetaminophen 325 MG TAB PO PRN (20:43)
[2017-07-09 04:50] LABS: #Eosinphils 0.1 thou/uL (0.0-0.7); #Lymphocytes 1.9 thou/uL (1.20-3.40); #Monocytes 0.5 thou/uL (0.11-0.59); #Neutrophils 4.8 thou/uL (1.40-6.50); %Basophils 0.4 % (0.0-1.0); %Eosinophils 1.8 % (0.0-10.0); %Lymphocytes 25.3 % (21.0-51.0); %Monocytes 7.4 % (0.0-10.0); Hematocrit 31.7 % (36.0-47.0); Mean Platelet Volume 9.8 fL (7.4-10.4); Red Blood Cell (RBC) Count 3.89 mill/uL (4.20-5.40); White Blood Cell (WBC) Count 7.4 thou/uL (4.8-10.8)
[2017-07-09 04:53] LABS: ALT (SGPT) 19 U/L (8-55); AST (SGOT) 35 U/L (5-34); Alkaline Phosphatase 110 U/L (40-150); Anion Gap 12 mmol/L (10-20); BUN (Urea Nitrogen) 13 mg/dL (9.8-20.1); Bilirubin, Total 0.4 mg/dL (0.2-1.2); Calc. Creatinine Clearance 56 mL/min (70-130); Calcium 8.5 mg/dL (7.8-10.44); Carbon Dioxide 29 mmol/L (22-29); Chloride 109 mmol/L (98-107); Estimated GFR-MDRD 48; Globulin 4.1 g/dL (2.4-3.5); Protein, Total 7.2 g/dL (6.0-8.3)
[2017-07-09] MEDS ORDERED: Potassium Chloride 20 MEQ TAB PO SCH (07:00)
[2017-07-09] MEDS: Dextrose 5% in Water 1,000 ML IV SCH ×3 (08:01→20:35)
[2017-07-09] MEDS: Amlodipine 5 MG TAB PO SCH (08:02)
[2017-07-09] MEDS: Heparin 5,000 UNITS/ML VIAL SC SCH ×3 (08:03→20:38)
[2017-07-09] MEDS: Docusate 100 MG CAP PO SCH ×2 (08:03→20:37)
[2017-07-09] MEDS: Ferrous Sulfate 325 MG TAB PO SCH (08:03)
[2017-07-09] MEDS: Potassium Chloride 20 MEQ TAB PO SCH ×3 (09:29→20:44)
--- NOTE | 2017-07-09 13:27 | PDOC.PN ---
- Subjective Encounter Start Date: 07/09/17 Encounter Start Time: 10:35 Subjective: feels weak but better -: no sob or fever or abd pain - Objective Resuscitation Status: Resuscitation Status FULL:Full Resuscitation MAR Reviewed: Yes Vital Signs & Weight: Vital Signs (12 hours) Temp Pulse Resp BP BP Pulse Ox 07/09/17 08:02 55 L 07/09/17 08:00 98.1 F 55 L 16 97 07/09/17 07:50 98.1 F 55 L 16 128/71 97 07/09/17 05:49 53 L 165/80 H Weight Weight 176 lb 11.2 oz I&O: 07/08/17 07/09/17 07/10/17 06:59 06:59 06:59 Intake Total 1761 2760 240 Output Total 2200 1800 Balance -439 960 240 Result Diagrams: 07/09/17 03:45 07/09/17 03:45 Phys Exam - Physical Examination HEENT: PERRLA, moist MMs Neck: no JVD, supple Respiratory: no wheezing, no rales Cardiovascular: RRR, no significant murmur Gastrointestinal: soft, non-tender, positive bowel sounds Musculoskeletal: no edema, pulses present Neurological: non-focal, moves all 4 limbs Psychiatric: A&O x 3 Dx/Plan (1) Acute worsening of stage 3 chronic kidney disease Code(s): N18.3 - CHRONIC KIDNEY DISEASE, STAGE 3 (MODERATE) Status: Acute (2) Hypernatremia Code(s): E87.0 - HYPEROSMOLALITY AND HYPERNATREMIA Status: Acute (3) Hypokalemia Code(s): E87.6 - HYPOKALEMIA Status: Acute (4) Sepsis with acute organ dysfunction Code(s): A41.9 - SEPSIS, UNSPECIFIED ORGANISM; R65.20 - SEVERE SEPSIS WITHOUT SEPTIC SHOCK Status: Acute (5) UTI (urinary tract infection) Status: Acute Qualifiers: Urinary tract infection type: acute cystitis Hematuria presence: without hematuria Qualified Code(s): N30.00 - Acute cystitis without hematuria (6) Anemia, normocytic normochromic Code(s): D64.9 - ANEMIA, UNSPECIFIED Status: Chronic (7) CKD (chronic kidney disease), stage III Status: Chronic (8) GERD (gastroesophageal reflux disease) Code(s): K21.9 - GASTRO-ESOPHAGEAL REFLUX DISEASE WITHOUT ESOPHAGITIS Status: Chronic Qualifiers: Esophagitis presence: esophagitis presence not specified Qualified Code(s) : K21.9 - Gastro-esophageal reflux disease without esophagitis (9) HTN (hypertension) Code(s): I10 - ESSENTIAL (PRIMARY) HYPERTENSION Status: Chronic Qualifiers: Hypertension type: essential hypertension Qualified Code(s): I10 - Essential (primary) hypertension (10) Obesity (BMI 30.0-34.9) Code(s): E66.9 - OBESITY, UNSPECIFIED Status: Chronic - Plan continue d5w, oral potassium replacement -: to ambulate in hallway as tolerated -: on levaquin for uti -: dc plan when electrolytes get corrected -: encourage po intake * . Review of Systems - Medications/Allergies Allergies/Adverse Reactions: Allergies Allergy/AdvReac Type Severity Reaction Status Date / Time No Known Allergies Allergy Verified 01/31/16 19:53 Medications: Current Medications Acetaminophen (Tylenol) 650 mg PO Q4H PRN PRN Reason: Headache/Fever or Pain Last Admin: 07/08/17 20:43 Dose: 650 mg Hydrocodone Bitart/Acetaminophen ([place] 10/325) 1 tab PO Q4H PRN PRN Reason: Severe Pain (7-10) Last Admin: 07/03/17 22:09 Dose: 1 tab Hydrocodone Bitart/Acetaminophen ([place] 5/325) 1 tab PO Q4H PRN PRN Reason: Moderate Pain (4-6) Amlodipine Besylate (Norvasc) 2.5 mg PO DAILY [facility] Last Admin: 07/09/17 08:02 Dose: 2.5 mg Docusate Sodium (Colace) 100 mg PO BID [facility] Last Admin: 07/09/17 08:03 Dose: 100 mg Ferrous Sulfate (Feosol) 325 mg PO DAILY [facility] Last Admin: 07/09/17 08:03 Dose: 325 mg Heparin Sodium (Porcine) (Heparin) 5,000 units SC TID [facility] Last Admin: 07/09/17 08:03 Dose: 5,000 units Hydralazine HCl (Apresoline) 10 mg SLOW IVP Q4H PRN PRN Reason: SBP Greater Than 170 Last Admin: 07/09/17 05:49 Dose: 10 mg Dextrose/Water (D5w) 1,000 mls @ 75 mls/hr IV .[id number] [facility] Last Admin: 07/09/17 12:11 Dose: Not Given Levofloxacin (Levaquin) 500 mg PO 0600 [facility] Last Admin: 07/09/17 05:49 Dose: 500 mg Ondansetron HCl (Zofran Odt) 4 mg PO Q6H PRN PRN Reason: Nausea/Vomiting Last Admin: 07/08/17 00:12 Dose: 4 mg Pantoprazole Sodium (Protonix) 40 mg PO DAILY [facility] Last Admin: 07/09/17 08:03 Dose: 40 mg Potassium Chloride (K-Dur) 40 meq PO Q6H [facility] Stop: 07/10/17 08:01 Last Admin: 07/09/17 09:29 Dose: 40 meq Sodium Chloride (Flush - Normal Saline) 10 ml IVF Q12HR [facility] Last Admin: 07/09/17 08:04 Dose: Not Given Sodium Chloride (Flush - Normal Saline) 10 ml IVF PRN PRN PRN Reason: Saline Flush Throat Lozenges (Cepastat Lozenges) 1 juve PO Q2H PRN PRN Reason: Sore Throat Last Admin: 07/06/17 12:01 Dose: 1 juve
[2017-07-10] MEDS: Dextrose 5% in Water 1,000 ML IV SCH (01:55)
[2017-07-10] MEDS: Potassium Chloride 20 MEQ TAB PO SCH ×2 (02:46→09:01)
[2017-07-10] MEDS: Acetaminophen 325 MG TAB PO PRN (02:49)
[2017-07-10] MEDS: Amlodipine 5 MG TAB PO SCH (05:00)
[2017-07-10 05:48] LABS: Mean Platelet Volume 9.5 fL (7.4-10.4); Neutrophil 53 % (42-75); Red Blood Cell (RBC) Count 3.81 mill/uL (4.20-5.40); White Blood Cell (WBC) Count 6.4 thou/uL (4.8-10.8)
[2017-07-10 06:09] LABS: ALT (SGPT) 24 U/L (8-55); AST (SGOT) 50 U/L (5-34); Alkaline Phosphatase 112 U/L (40-150); Anion Gap 9 mmol/L (10-20); BUN (Urea Nitrogen) 10 mg/dL (9.8-20.1); Bilirubin, Total 0.3 mg/dL (0.2-1.2); Calc. Creatinine Clearance 65 mL/min (70-130); Calcium 8.5 mg/dL (7.8-10.44); Carbon Dioxide 29 mmol/L (22-29); Chloride 106 mmol/L (98-107); Estimated GFR-MDRD 57; Globulin 3.9 g/dL (2.4-3.5); Protein, Total 6.9 g/dL (6.0-8.3)
[2017-07-10] MEDS: Ondansetron ODT 4 MG TAB PO PRN (07:53)
[2017-07-10 08:45] VITALS: BP 145/60; TEMP 97.1
[2017-07-10] MEDS: Docusate 100 MG CAP PO SCH (09:01)
[2017-07-10] MEDS: Ferrous Sulfate 325 MG TAB PO SCH (09:01)
[2017-07-10] MEDS: Heparin 5,000 UNITS/ML VIAL SC SCH (09:02)
--- NOTE | 2017-07-10 15:24 | PDOC.PN ---
- Subjective Encounter Start Date: 07/10/17 Encounter Start Time: 08:15 Subjective: feels better - Objective Resuscitation Status: Resuscitation Status FULL:Full Resuscitation MAR Reviewed: Yes Vital Signs & Weight: Vital Signs (12 hours) Temp Pulse Resp BP BP BP Pulse Ox 07/10/17 08:00 97.1 F L 61 18 145/60 H 98 07/10/17 06:38 98.1 F 64 16 150/76 H 97 07/10/17 05:00 64 150/76 H Weight Weight 176 lb 11.2 oz I&O: 07/09/17 07/10/17 07/11/17 06:59 06:59 06:59 Intake Total 2760 2710 Output Total 1800 Balance 960 2710 Result Diagrams: 07/10/17 05:01 07/10/17 05:01 Phys Exam - Physical Examination HEENT: PERRLA, moist MMs Neck: no JVD, supple Respiratory: no wheezing, no rales Cardiovascular: RRR, no significant murmur Gastrointestinal: soft, non-tender, no distention, positive bowel sounds Musculoskeletal: no edema, pulses present Neurological: non-focal, moves all 4 limbs Psychiatric: A&O x 3 Dx/Plan (1) Acute worsening of stage 3 chronic kidney disease Code(s): N18.3 - CHRONIC KIDNEY DISEASE, STAGE 3 (MODERATE) Status: Resolved (2) Hypernatremia Code(s): E87.0 - HYPEROSMOLALITY AND HYPERNATREMIA Status: Resolved (3) Hypokalemia Code(s): E87.6 - HYPOKALEMIA Status: Resolved (4) Sepsis with acute organ dysfunction Code(s): A41.9 - SEPSIS, UNSPECIFIED ORGANISM; R65.20 - SEVERE SEPSIS WITHOUT SEPTIC SHOCK Status: Resolved (5) UTI (urinary tract infection) Status: Acute Qualifiers: Urinary tract infection type: acute cystitis Hematuria presence: without hematuria Qualified Code(s): N30.00 - Acute cystitis without hematuria (6) Anemia, normocytic normochromic Code(s): D64.9 - ANEMIA, UNSPECIFIED Status: Chronic (7) CKD (chronic kidney disease), stage III Status: Chronic (8) GERD (gastroesophageal reflux disease) Code(s): K21.9 - GASTRO-ESOPHAGEAL REFLUX DISEASE WITHOUT ESOPHAGITIS Status: Chronic Qualifiers: Esophagitis presence: esophagitis presence not specified Qualified Code(s) : K21.9 - Gastro-esophageal reflux disease without esophagitis (9) HTN (hypertension) Code(s): I10 - ESSENTIAL (PRIMARY) HYPERTENSION Status: Chronic Qualifiers: Hypertension type: essential hypertension Qualified Code(s): I10 - Essential (primary) hypertension (10) Obesity (BMI 30.0-34.9) Code(s): E66.9 - OBESITY, UNSPECIFIED Status: Chronic - Plan hemostable -: electrolytes are stable this am -: is eating better -: dc pt home -: has completed 7day antibiotics * .
--- NOTE | 2017-07-10 22:59 | DIS ---
DATE OF ADMISSION: 07/03/2017 DATE OF DISCHARGE: 07/10/2017 DISCHARGE DISPOSITION: To home. PRIMARY DISCHARGE DIAGNOSES: Multiple electrolyte abnormalities with dehydration, resolved; acute ki dney injury with history of chronic kidney disease stage III; sepsis with urinary tract infection; ch ronic anemia; gastroesophageal reflux disease, hypertension, obesity. PROCEDURES DONE DURING HOSPITALIZATION: Chest x-ray done showed no acute cardiopulmonary abnormaliti es. Echo with 2D Doppler showed EF of 55-60% with normal diastolic function, no regional wall motion abnormality was seen. Right knee, four view x-ray done showed small osteochondral lesion with the a rticular surface of the patella joint effusion, no evidence of fracture or osteoarthrosis. Left knee , four view x-ray done showed trace suprapatellar effusion. Blood cultures x2 no growth. Influenza A and B antigens were negative. Urine culture was contaminated. Discharge white count of 6, H&H 10 and 31, platelet count 192, had an initial white count of 14, with 86% neutrophils on the day of admi ssion. Discharge sodium is 140. Discharge serum bicarbonate is 29, discharge BUN 10. Discharge cre atinine is 1.1. Admitting BUN and creatinine were 13 and 2.5. DISCHARGE MEDICATIONS: Norvasc 2.5 mg p.o. daily, iron 18 mg as before daily, Protonix 40 mg p.o. da titus. ALLERGIES: No known drug allergies. DISCHARGE PLAN: Patient to follow up with primary care physician in 1 week. BRIEF COURSE DURING HOSPITALIZATION: The patient initially got admitted on the with complaints of elevated blood pressure, generalized body aches and dizziness. She also had a urinary tract infec tion. The patient had an elevated white count of 14 and a temperature of 101.2. Patient had richards cul tures drawn and was placed on IV antibiotics. She was generously hydrated with complete resolution o f her acute kidney injury. Blood cultures x2 showed no growth. Urine culture was contaminated. She has had severe dehydration with multiple electrolyte abnormalities, all of which were corrected. Pr ior to discharge, she is ambulating and eating well. She was counseled with regards to eating health y and compliance with medication. The patient is hemodynamically stable and will be shortly discharg ed home. Please see a face to face documentation on [employer] for the day of discharge.
--- NOTE | 2017-08-11 11:21 | EKG ---
Test Reason : CP Blood Pressure : / mmHG Vent. Rate : 073 BPM Atrial Rate : 073 BPM P-R Int : 140 ms QRS Dur : 084 ms QT Int : 366 ms P-R-T Axes : 050 035 009 degrees QTc Int : 403 ms Normal sinus rhythm Possible Left atrial enlargement Borderline ECG Confirmed by OCTAVIO TRIMBLE M.D. ([id number]), fashion editor CAIT LEA ([id number]) on 08/11/2017 11:20:37 AM Referred By: Confirmed By:OCTAVOI TRIMBLE M.D.
== END 2017-07-10 13:58 | disposition home or self-care (01) | DRG 872 ==
LOC: ERS 13:36 → 2NO 18:18 → T4-B 07-06 18:04
PROVIDERS: ADMIT Internal Medicine Infectious Disease; ATTEND Internal Medicine Infectious Disease
DX: A41.9 Sepsis, unspecified organism (principal); N17.9 Acute kidney failure, unspecified; N18.3 Chronic kidney disease, stage 3 (moderate); E87.0 Hyperosmolality and hypernatremia; N30.00 Acute cystitis without hematuria; R65.20 Severe sepsis without septic shock; K21.9 Gastro-esophageal reflux disease without esophagitis; K44.9 Diaphragmatic hernia without obstruction or gangrene; Z90.5 Acquired absence of kidney; F17.220 Nicotine dependence, chewing tobacco, uncomplicated; Z85.528 Personal history of other malignant neoplasm of kidney; I34.0 Nonrheumatic mitral (valve) insufficiency; E86.0 Dehydration; I12.9 Hypertensive chronic kidney disease with stage 1 through stage 4 chronic kidney disease, or unspecified chronic kidney disease; D64.9 Anemia, unspecified; E66.9 Obesity, unspecified; Z68.30 Body mass index [BMI] 30.0-30.9, adult; E87.6 Hypokalemia; M25.462 Effusion, left knee; M25.461 Effusion, right knee
CPT/HCPCS: 36415; 71010; 80048; 80053; 81003; 81015; 82553; 83605; 83690; 83735; 84100; 84484; 85025; 85610; 85730; 87040; 87086; 93005; 93306; 96361; 96365; 96375; 99406; A4216; G8978-GP-CI; G8979-GP-CI; G8980-GP-CI; G8987-GO-CJ; G8988-GO-CH; J0360; J0692; J0696; J1644; J1650; J2405; J7050; Q0162

== ENCOUNTER 2017-12-18 09:45 | Emergency (ER) | payer MEDICAID, SELFPAY ==
[2017-12-18 13:07] LABS: #Eosinphils 0.1 thou/uL (0.0-0.7); #Lymphocytes 2.3 thou/uL (1.20-3.40); #Monocytes 0.5 thou/uL (0.11-0.59); #Neutrophils 2.6 thou/uL (1.40-6.50); %Eosinophils 1.2 % (0.0-10.0); %Lymphocytes 42.7 % (21.0-51.0); %Monocytes 8.8 % (0.0-10.0); %Neutrophils 47.3 % (42.0-75.0); Hemoglobin 12.1 g/dL (12.0-16.0); Mean Corpuscular HGB CONC 34.9 g/dL (32.0-36.0); Mean Corpuscular Hemoglobin 28.1 pg (27.0-31.0); Mean Corpuscular Volume 80.5 fl (81.0-99.0); Mean Platelet Volume 8.7 fL (7.4-10.4); Platelet Count 169 thou/uL (130-400); RBC Distribution Width 13.3 % (11.5-14.5); Red Blood Cell (RBC) Count 4.29 mill/uL (4.20-5.40); White Blood Cell (WBC) Count 5.4 thou/uL (4.8-10.8)
[2017-12-18 13:33] LABS: ALT (SGPT) 12 U/L (8-55); AST (SGOT) 17 U/L (5-34); Alkaline Phosphatase 104 U/L (40-150); Anion Gap 10 mmol/L (10-20); BUN (Urea Nitrogen) 14 mg/dL (9.8-20.1); Bilirubin, Total 0.4 mg/dL (0.2-1.2); CK (CPK) 108 U/L (29-168); Calc. Creatinine Clearance 0 mL/min (70-130); Calcium 9.1 mg/dL (7.8-10.44); Carbon Dioxide 26 mmol/L (22-29); Chloride 108 mmol/L (98-107); Estimated GFR-MDRD 55; Globulin 3.7 g/dL (2.4-3.5); Glucose 87 mg/dL (70-105); Potassium 4.4 mmol/L (3.5-5.1); Protein, Total 7.7 g/dL (6.0-8.3); Sodium 140 mmol/L (136-145)
[2017-12-18 13:37] LABS: CKMB 0.6 ng/mL (0-6.6); Troponin I Less than 0.010 ng/mL (< 0.028)
--- NOTE | 2017-12-18 13:39 | RAD ---
CHEST 1 VIEW: Date: 12/18/17 HISTORY: Chest pain. COMPARISON: 07/03/17. FINDINGS: Cardiac silhouette is magnified by projection. Pulmonary vasculature unremarkable. Mediastinum midlin e. No lobar consolidation or evidence of pneumothorax. IMPRESSION: No active cardiopulmonary abnormalities are demonstrated. POS: [facility]
== END 2017-12-18 14:03 | disposition home or self-care (01) ==
LOC: ERS 09:45
DX: R07.9 Chest pain, unspecified (principal)
CPT/HCPCS: 36415; 71045; 80053; 82553; 84484; 85025; 85379; 93005

== ENCOUNTER 2018-01-20 10:41 | Outpatient (CLI) | payer MEDICARE, MEDICAID | END 2018-01-20 10:42 | disposition home or self-care (01) | LOC: BICRAD 10:41 | PROVIDERS: ATTEND Family Medicine | DX: M21.961 Unspecified acquired deformity of right lower leg (principal) ==

== ENCOUNTER 2018-09-24 12:30 | Outpatient (CLI) | payer MEDICARE, MEDICAID | END 2018-09-24 12:31 | disposition home or self-care (01) | LOC: BICMAMMO 12:30 | PROVIDERS: ATTEND Family Medicine | DX: Z12.31 Encounter for screening mammogram for malignant neoplasm of breast (principal); Z85.528 Personal history of other malignant neoplasm of kidney | CPT/HCPCS: 77063; 77067 ==

== ENCOUNTER 2019-02-08 01:12 | Emergency (ER) | payer MEDICARE, MEDICAID ==
[2019-02-08] MEDS ORDERED: diphenhydrAMINE 25 MG CAP ONE (02:51)
== END 2019-02-08 02:52 | disposition home or self-care (01) ==
LOC: ERS 01:12
DX: L25.9 Unspecified contact dermatitis, unspecified cause (principal)
CPT/HCPCS: 99282; Q0163

== ENCOUNTER 2019-04-28 11:25 | Emergency (ER) | payer MEDICARE, MEDICAID ==
[2019-04-28] MEDS ORDERED: Iopamidol 370 76% 100 ML VIAL ONE (11:51)
[2019-04-28 11:53] LABS: #Basophils 0.1 thou/uL (0.0-0.2); #Eosinphils 0.2 thou/uL (0.0-0.7); #Lymphocytes 2.3 thou/uL (1.20-3.40); #Monocytes 0.6 thou/uL (0.11-0.59); #Neutrophils 3.6 thou/uL (1.40-6.50); %Basophils 0.9 % (0.0-1.0); %Eosinophils 2.3 % (0.0-10.0); %Monocytes 8.6 % (0.0-10.0); %Neutrophils 54.2 % (42.0-75.0); Hemoglobin 12.9 g/dL (12.0-16.0); Mean Corpuscular HGB CONC 34.7 g/dL (32.0-36.0); Mean Corpuscular Hemoglobin 28.1 pg (27.0-31.0); Mean Platelet Volume 9.1 fL (7.4-10.4); Platelet Count 169 thou/uL (130-400); RBC Distribution Width 13.4 % (11.5-14.5); Red Blood Cell (RBC) Count 4.58 mill/uL (4.20-5.40); White Blood Cell (WBC) Count 6.7 thou/uL (4.8-10.8)
[2019-04-28 12:16] LABS: Bacteria/HPF None Seen HPF (None Seen); Bilirubin Negative (Negative); Blood, Urine Trace (Negative); Clarity Clear (Clear); Glucose, Urine (Dipstick) Normal (Negative); Leukocyte Negative Leu/uL (Negative); Nitrite Negative (Negative); Protein, Urine (Dipstick) Negative (Neg-Trace); Urobilinogen Normal mg/dL (Less than 2); WBC/HPF 0-3 HPF (0-3)
[2019-04-28 12:17] LABS: ALT (SGPT) 12 U/L (8-55); AST (SGOT) 18 U/L (5-34); Albumin 4.2 g/dL (3.4-4.8); Alkaline Phosphatase 117 U/L (40-150); Anion Gap 9 mmol/L (10-20); BUN (Urea Nitrogen) 15 mg/dL (9.8-20.1); Bilirubin, Total 0.3 mg/dL (0.2-1.2); Calc. Creatinine Clearance 0 mL/min (70-130); Calcium 9.5 mg/dL (7.8-10.44); Carbon Dioxide 26 mmol/L (23-31); Chloride 106 mmol/L (98-107); Estimated GFR-MDRD 51; Globulin 3.8 g/dL (2.4-3.5); Glucose 108 mg/dL (80-115); Potassium 4.1 mmol/L (3.5-5.1); Sodium 137 mmol/L (136-145)
--- NOTE | 2019-04-28 13:02 | CT ---
CT Abdomen Pelvis W Con History: Abdominal pain Comparison: CT abdomen 2011 Findings: Lung bases are clear. No pericardial effusion. Too small to characterize hepatic hypodensit y within segment 5 measures 5-6 mm likely a hemangioma. Prior right nephrectomy. No dilated loops of large or small bowel. Aortic contour is nonaneurysmal. No retroperitoneal periaortic adenopathy. No abnormal soft tissue ma ss within the right nephrectomy bed. Scattered too small to characterize hypodensities posterior cortex left kidney. Moderate facet arthropathy lower lumbar spine. The appendix is unremarkable. Normal proximal small bowel rotation. Impression: 1. No acute inflammatory process within the abdomen or pelvis. 2. Mild proximal small bowel mesenteric edema with reactive lymph nodes, mesenteritis.
== END 2019-04-28 14:00 | disposition home or self-care (01) ==
LOC: ERS 11:25
DX: K52.9 Noninfective gastroenteritis and colitis, unspecified (principal); F17.220 Nicotine dependence, chewing tobacco, uncomplicated
CPT/HCPCS: 36415; 74177; 80053; 81003; 81015; 85025; Q9967

== ENCOUNTER 2019-08-08 12:47 | Emergency (ER) | payer MEDICARE, MEDICAID ==
[2019-08-08 14:16] LABS: #Basophils 0.1 thou/uL (0.0-0.2); #Eosinphils 0.1 thou/uL (0.0-0.7); #Monocytes 0.5 thou/uL (0.11-0.59); #Neutrophils 2.7 thou/uL (1.40-6.50); %Basophils 1.2 % (0.0-1.0); %Eosinophils 1.9 % (0.0-10.0); %Lymphocytes 36.7 % (21.0-51.0); %Monocytes 9.3 % (0.0-10.0); %Neutrophils 50.9 % (42.0-75.0); Hemoglobin 12.9 g/dL (12.0-16.0); Mean Corpuscular HGB CONC 34.2 g/dL (32.0-36.0); Mean Corpuscular Hemoglobin 27.9 pg (27.0-31.0); Mean Corpuscular Volume 81.7 fL (78.0-98.0); Mean Platelet Volume 8.6 fL (7.4-10.4); Platelet Count 187 thou/uL (130-400); RBC Distribution Width 13.6 % (11.5-14.5); Red Blood Cell (RBC) Count 4.63 mill/uL (4.20-5.40); White Blood Cell (WBC) Count 5.3 thou/uL (4.8-10.8)
--- NOTE | 2019-08-08 14:28 | CT ---
CT BRAIN WITHOUT CONTRAST: HISTORY: Headache and dizziness. COMPARISON: 01/31/2016. FINDINGS: No evidence of acute infarct, hemorrhage, midline shift, or abnormal extraaxial fluid collections is seen. The ventricular size is normal and the basilar cisterns patent. The bony calvarium is intact. The visualized paranasal sinuses and mastoid air cells are well aerated. IMPRESSION: No CT evidence of acute intracranial process. POS: [facility]
[2019-08-08 14:39] LABS: ALT (SGPT) 11 U/L (8-55); AST (SGOT) 17 U/L (5-34); Albumin 4.4 g/dL (3.4-4.8); Alkaline Phosphatase 124 U/L (40-110); Anion Gap 13 mmol/L (10-20); BUN (Urea Nitrogen) 18 mg/dL (9.8-20.1); Bilirubin, Total 0.4 mg/dL (0.2-1.2); Calc. Creatinine Clearance 0 mL/min (70-130); Calcium 9.9 mg/dL (7.8-10.44); Carbon Dioxide 29 mmol/L (23-31); Chloride 104 mmol/L (98-107); Estimated GFR-MDRD 48; Globulin 4.1 g/dL (2.4-3.5); Glucose 90 mg/dL (80-115); Potassium 4.8 mmol/L (3.5-5.1); Protein, Total 8.5 g/dL (6.0-8.3); Sodium 141 mmol/L (136-145)
== END 2019-08-08 15:00 | disposition home or self-care (01) ==
LOC: ERS 12:47
DX: R42 Dizziness and giddiness (principal); F17.220 Nicotine dependence, chewing tobacco, uncomplicated; Z79.899 Other long term (current) drug therapy
CPT/HCPCS: 36415; 70450; 80053; 84484; 85025; 93005

== ENCOUNTER 2019-09-26 10:02 | Outpatient (CLI) | payer MEDICARE, MEDICAID ==
--- NOTE | 2019-09-27 14:39 | MMO ---
Bilateral MAMMO Bilat Screen [facility]. CLINICAL HISTORY: Patient is 64 years old and is seen for screening. The patient has no family history of breast cancer. The patient has no personal history of cancer. The patient has a history of right Excisional Biopsy at age 23 - benign - Cyst removed. VIEWS: The views performed were: bilateral craniocaudal with tomosynthesis and bilateral mediolateral oblique with tomosynthesis. FILMS COMPARED: The present examination has been compared to prior imaging studies performed at [facility] on 09/26/2016, 09/23/2017 and 09/24/2018, and at [facility] on 09/05/2015. This study has been interpreted with the assistance of computer-aided detection. MAMMOGRAM FINDINGS: There are scattered fibroglandular densities. There are vascular calcifications seen in both breasts. There are no suspicious masses, suspicious calcifications, or new areas of architectural distortion. IMPRESSION: A ROUTINE FOLLOW-UP MAMMOGRAM IN 1 YEAR IS RECOMMENDED. THE RESULTS OF THIS EXAM WERE SENT TO THE PATIENT. ACR BI-RADS Category 2 - Benign finding MAMMOGRAPHY NOTE: 1. A negative mammogram report should not delay a biopsy if a dominant of clinically suspicious mass is present. 2. Approximately 10% to 15% of breast cancers are not detected by mammography. 3. Adenosis and dense breasts may obscure an underlying neoplasm. Reported by: LAURIE BARTON MD Electonically Signed: [id number]
== END 2019-09-26 10:03 | disposition home or self-care (01) ==
LOC: BICMAMMO 10:02
PROVIDERS: ATTEND Family Medicine
DX: Z12.31 Encounter for screening mammogram for malignant neoplasm of breast (principal); Z91.89 Other specified personal risk factors, not elsewhere classified; Z98.890 Other specified postprocedural states
CPT/HCPCS: 77063; 77067

== ENCOUNTER 2019-10-15 10:14 | Emergency (ER) | payer MEDICARE, MEDICAID ==
[2019-10-15 11:28] LABS: Bilirubin Negative (Negative); Blood, Urine Negative (Negative); Clarity Clear (Clear); Glucose, Urine (Dipstick) Normal (Negative); Leukocyte Negative Leu/uL (Negative); Nitrite Negative (Negative); Protein, Urine (Dipstick) Negative (Neg-Trace); Urobilinogen Normal mg/dL (Less than 2)
== END 2019-10-15 12:23 | disposition home or self-care (01) ==
LOC: ERS 10:14
DX: N39.0 Urinary tract infection, site not specified (principal); I10 Essential (primary) hypertension; F17.220 Nicotine dependence, chewing tobacco, uncomplicated; Z79.899 Other long term (current) drug therapy
CPT/HCPCS: 81003; 87086; 99283

== ENCOUNTER 2020-02-01 10:23 | Outpatient (CLI) | payer MEDICARE ==
--- NOTE | 2020-02-01 10:47 | RAD ---
XR Foot Lt 3 View STANDARD INDICATION: Left foot pain COMPARISON: None. FINDINGS: Bones: No acute fractures evident. There is mild enthesopathic change off the plantar calcaneus. Joints: There is mild great toe MTP osteoarthrosis. There is mild-sized bunion overlying the great to e metatarsal head. There is mild metatarsus primus varus and hallux valgus deformity of the first ray. Small periarticular erosion is seen involving the great toe proximal phalangeal head with an ass ociated area of soft tissue prominence adjacent to the erosions. No additional erosion is evident. There is mild scattered forefoot osteoarthrosis. There is mild midfoot osteoarthrosis. Lisfranc alignment: Lisfranc alignment appears within normal limits. Soft tissues: No soft tissue injury demonstrated. No radiographic foreign body demonstrated. IMPRESSION: 1. No acute fracture or subluxation demonstrated. 2. Mild scattered osteoarthrosis of the left foot, most pronounced within the great toe. 3. Small periarticular erosion involving the dorsal medial aspect of the great toe proximal phalangea l head with associated soft tissue prominence. This can be seen with gout. Recommend correlation with the clinical examination as well as patient's serum laboratory evaluation.
--- NOTE | 2020-02-01 10:47 | RAD ---
Exam:3 views right foot HISTORY: Pain. Patient started walking for exercise month ago. Posterior heel pain. COMPARISON: None FINDINGS: No significant hypertrophic bone formation of the calcaneus along the plantar aponeurosis i nsertion site. Mild valgus valgus deformity. Mild degenerative change of first metatarsal phalangeal joint space. No erosive or destructive changes. Lisfranc alignment is maintained. No fracture. IMPRESSION: 1. No radiographic evidence of spurring along the calcaneus at the plantar aponeurosis insertion site 2. Mild hallux valgus deformity the first digit. Mild degenerative change of first metatarsal phalang eal joint space.
== END 2020-02-01 10:24 | disposition home or self-care (01) ==
LOC: BICRAD 10:23
PROVIDERS: ATTEND Family Medicine
DX: M79.671 Pain in right foot (principal); M79.672 Pain in left foot; M19.072 Primary osteoarthritis, left ankle and foot; M19.071 Primary osteoarthritis, right ankle and foot; M20.11 Hallux valgus (acquired), right foot

== ENCOUNTER 2020-10-12 10:10 | Outpatient (CLI) | payer MEDICARE, MEDICAID | END 2020-10-12 10:11 | disposition home or self-care (01) | LOC: BICMAMMO 10:10 | PROVIDERS: ATTEND Family Medicine | DX: Z12.31 Encounter for screening mammogram for malignant neoplasm of breast (principal); Z91.89 Other specified personal risk factors, not elsewhere classified; Z98.890 Other specified postprocedural states | CPT/HCPCS: 77063; 77067 ==

== ENCOUNTER 2021-10-14 08:17 | Outpatient (CLI) | payer MEDICARE, MEDICAID | END 2021-10-14 08:18 | disposition home or self-care (01) | LOC: BICMAMMO 08:17 | PROVIDERS: ATTEND Family Medicine | DX: Z12.31 Encounter for screening mammogram for malignant neoplasm of breast (principal); Z85.528 Personal history of other malignant neoplasm of kidney | CPT/HCPCS: 77063; 77067 ==

== ENCOUNTER 2022-01-29 11:39 | Outpatient (CLI) | payer MEDICARE, MEDICAID | END 2022-01-29 11:40 | disposition home or self-care (01) | LOC: BICRAD 11:39 | PROVIDERS: ATTEND Family Medicine | DX: R05.9 Cough, unspecified (principal) | CPT/HCPCS: 71046 ==

== ENCOUNTER 2022-02-01 17:30 | Emergency (ER) | payer MEDICARE, MEDICAID ==
[2022-02-01] MEDS ORDERED: Oxymetazoline HCl 0.05% (30 ML BOT) ONE (19:45)
[2022-02-01] MEDS ORDERED: Acetaminophen 500 MG TAB ONE (19:45)
== END 2022-02-01 20:03 | disposition home or self-care (01) ==
LOC: ERS 17:30
DX: U07.1 COVID-19 (principal); R42 Dizziness and giddiness; F17.220 Nicotine dependence, chewing tobacco, uncomplicated; I10 Essential (primary) hypertension; Z79.899 Other long term (current) drug therapy
CPT/HCPCS: 93005; U0003; U0005

== ENCOUNTER 2022-04-11 11:15 | Emergency (ER) | payer OTHER, MEDICAID ==
[2022-04-11 12:47] LABS: Hemoglobin 11.9 g/dL (12.0-16.0); Mean Corpuscular HGB CONC 34.2 g/dL (32.0-36.0); Mean Corpuscular Hemoglobin 28.2 pg (27.0-31.0); Mean Corpuscular Volume 82.5 fL (78.0-98.0); Mean Platelet Volume 9.4 fL (7.4-10.4); Platelet Count 185 thou/uL (130-400); Red Blood Cell (RBC) Count 4.21 mill/uL (4.20-5.40); White Blood Cell (WBC) Count 5.5 thou/uL (4.8-10.8)
[2022-04-11 13:12] LABS: Band 1 % (5-11); Eosinophils 3 % (0-10); Lymphocytes 40 % (21-51); MDiff Complete? YES; Monocytes 10 % (0-10); Neutrophil 44 % (42-75); Platelet Morphology Comment Appears Adequate; RBC Morphology Normal; Reactive Lymphocytes 1 % (0-10)
[2022-04-11] MEDS ORDERED: Morphine 4 MG/ML VIAL ONE (13:12)
[2022-04-11 13:18] LABS: ALT (SGPT) 13 U/L (8-55); AST (SGOT) 18 U/L (5-34); Albumin 4.1 g/dL (3.4-4.8); Alkaline Phosphatase 104 U/L (40-110); Anion Gap 13 mmol/L (10-20); BUN (Urea Nitrogen) 18 mg/dL (9.8-20.1); Bilirubin, Total 0.4 mg/dL (0.2-1.2); Calc. Creatinine Clearance 0 mL/min (70-130); Calcium 9.6 mg/dL (7.8-10.44); Carbon Dioxide 26 mmol/L (23-31); Chloride 104 mmol/L (98-107); Estimated GFR 38; Globulin 3.9 g/dL (2.4-3.5); Glucose 95 mg/dL (80-115); Lipase 26 U/L (8-78); Potassium 4.9 mmol/L (3.5-5.1); Sodium 138 mmol/L (136-145)
[2022-04-11] MEDS ORDERED: Ondansetron PF 4 MG/2 ML Vial ONE (14:27)
[2022-04-11 14:52] LABS: Bacteria/HPF None Seen HPF (None Seen); Bilirubin Negative (Negative); Blood, Urine Trace (Negative); Clarity Clear (Clear); Glucose, Urine (Dipstick) Normal (Negative); Ketone, Urine Negative (Negative); Leukocyte Negative Leu/uL (Negative); Nitrite Negative (Negative); Protein, Urine (Dipstick) Negative (Neg-Trace); RBC/HPF 0-3 HPF (0-3); Specific Gravity, Urine 1.013 (1.002-1.036); Squamous Epithelial 0-3 HPF (0-3); Urobilinogen Normal mg/dL (Less than 2); WBC/HPF 0-3 HPF (0-3)
== END 2022-04-11 15:30 | disposition home or self-care (01) ==
LOC: ERS 11:15
DX: K29.70 Gastritis, unspecified, without bleeding (principal); I10 Essential (primary) hypertension; F17.220 Nicotine dependence, chewing tobacco, uncomplicated; Z79.899 Other long term (current) drug therapy
CPT/HCPCS: 36415; 74176; 80053; 81003; 81015; 83690; 85025; 87077; 87086; 96361; 96374; J2270; J2405

== ENCOUNTER 2022-06-22 06:29 | Emergency (ER) | payer OTHER, MEDICAID ==
[2022-06-22 07:21] LABS: #Basophils 0.1 thou/uL (0.0-0.2); #Eosinphils 0.1 thou/uL (0.0-0.7); #Lymphocytes 2.2 thou/uL (1.20-3.40); #Monocytes 0.5 thou/uL (0.11-0.59); #Neutrophils 3.7 thou/uL (1.40-6.50); %Basophils 0.8 % (0.0-1.0); %Eosinophils 1.6 % (0.0-10.0); %Lymphocytes 34.1 % (21.0-51.0); %Monocytes 7.3 % (0.0-10.0); %Neutrophils 56.2 % (42.0-75.0); Hemoglobin 12.3 g/dL (12.0-16.0); Mean Corpuscular HGB CONC 34.6 g/dL (32.0-36.0); Mean Corpuscular Hemoglobin 28.9 pg (27.0-31.0); Mean Corpuscular Volume 83.5 fl (78.0-98.0); Mean Platelet Volume 8.7 fL (7.4-10.4); Platelet Count 195 10x3/uL (130-400); RBC Distribution Width 13.1 % (11.5-14.5); Red Blood Cell (RBC) Count 4.27 mill/uL (4.20-5.40); White Blood Cell (WBC) Count 6.6 10x3/uL (4.8-10.8)
[2022-06-22 07:46] LABS: ALT (SGPT) 12 U/L (8-55); AST (SGOT) 17 U/L (5-34); Albumin 4.1 g/dL (3.4-4.8); Alkaline Phosphatase 103 U/L (40-110); Anion Gap 11 mmol/L (10-20); BUN (Urea Nitrogen) 18 mg/dL (9.8-20.1); Bilirubin, Total 0.4 mg/dL (0.2-1.2); Calc. Creatinine Clearance 0 mL/min (70-130); Calcium 10.2 mg/dL (7.8-10.44); Carbon Dioxide 28 mmol/L (23-31); Chloride 106 mmol/L (98-107); Estimated GFR 43; Globulin 3.9 g/dL (2.4-3.5); Glucose 110 mg/dL (80-115); Potassium 4.6 mmol/L (3.5-5.1); Sodium 140 mmol/L (136-145)
[2022-06-22] MEDS ORDERED: Ondansetron ODT 4 MG TAB ONE (08:31)
== END 2022-06-22 08:33 | disposition home or self-care (01) ==
LOC: ERS 06:29
DX: I10 Essential (primary) hypertension (principal); F17.220 Nicotine dependence, chewing tobacco, uncomplicated
CPT/HCPCS: 36415; 71045; 80053; 85025; 93005; Q0162

== ENCOUNTER 2022-10-28 19:30 | Outpatient (CLI) | payer OTHER, MEDICAID | END 2022-10-28 19:31 | disposition home or self-care (01) | LOC: SLEEPLAB 19:30 | PROVIDERS: ATTEND Internal Medicine Critical Care Medicine | DX: G47.33 Obstructive sleep apnea (adult) (pediatric) (principal) | CPT/HCPCS: 95810 ==

== ENCOUNTER 2022-11-06 19:00 | Outpatient (CLI) | payer OTHER, MEDICAID | END 2022-11-06 19:01 | disposition home or self-care (01) | LOC: SLEEPLAB 19:00 | PROVIDERS: ATTEND Internal Medicine Critical Care Medicine | DX: G47.33 Obstructive sleep apnea (adult) (pediatric) (principal); F51.01 Primary insomnia | CPT/HCPCS: 95810 ==

== ENCOUNTER 2024-03-04 12:51 | Outpatient (CLI) | payer OTHER | END 2024-03-04 12:52 | disposition home or self-care (01) | LOC: BICRAD 12:51 | PROVIDERS: ATTEND Family Medicine | DX: R07.82 Intercostal pain (principal); R91.1 Solitary pulmonary nodule | CPT/HCPCS: 71046 ==

== ENCOUNTER → 2024-07-06 | Outpatient (CLI) | payer OTHER | LOC: BICMAMMO 13:49 | PROVIDERS: ATTEND Family Medicine | DX: Z12.31 Encounter for screening mammogram for malignant neoplasm of breast (principal); Z85.528 Personal history of other malignant neoplasm of kidney; Z91.89 Other specified personal risk factors, not elsewhere classified | CPT/HCPCS: 77063; 77067 ==

== ENCOUNTER 2025-03-16 08:00 | Outpatient (CLI) | payer OTHER, MEDICAID | END 2025-03-16 08:01 | disposition home or self-care (01) | LOC: BICCT 08:00 | PROVIDERS: ATTEND Family Medicine | DX: R91.1 Solitary pulmonary nodule (principal) | CPT/HCPCS: 71250 ==